=== PATIENT | female | born 1960 | race Caucasian/White ===

== ENCOUNTER 2024-02-02 15:21 | Outpatient (REF) | payer BC, SELFPAY ==
[2024-02-02 16:24] LABS: Basophils Percent Auto 1.3 % (0.0-3.0); Eosinophils Percent Auto 3.6 % (0.0-7.0); Hematocrit 38.6 % (33.0-51.0); Hemoglobin* 12.3 gm/dL (12.0-16.0); Lymphocytes Percent Auto 40.9 % (20-44); Mean Corpuscular HGB Conc 32 gm/dL (32-36); Mean Corpuscular Hemoglobin 28 pg (26-34); Mean Corpuscular Volume 89 fL (80-100); Monocytes Percent Auto 8.9 % (0.0-11.0); Neutrophils Percent Auto 45.3 % (42.0-72.0); Platelet Count* 364 K/uL (140-440); Red Blood Count 4.36 m/uL (4.00-5.20); White Blood Count* 3.03 K/uL (4.50-11.00)
[2024-02-02 16:25] LABS: Slide Review Reflex No
[2024-02-02 16:39] LABS: Chloride* 107 mmol/L (96-114); Sodium* 140 mmol/L (135-149)
[2024-02-02 16:40] LABS: Potassium* 4.3 mmol/L (3.6-5.1)
[2024-02-02 16:42] LABS: Creatinine* 1.4 mg/dL (0.5-1.5); Estimated Glomerular Filt Rate 43 ml/min
[2024-02-02 16:43] LABS: Anion Gap 5 mEq/L (7-15); Blood Urea Nitrogen* 34 mg/dL (7-30); Calcium* 9.4 mg/dL (8.4-10.6); Carbon Dioxide* 28 mmol/L (20-32); Glucose* 90 mg/dL (60-115); Magnesium* 2.1 mg/dL (1.5-2.6)
== END 2024-02-02 15:22 | disposition home or self-care (01) ==
LOC: NPINS 15:21
PROVIDERS: Internal Medicine Cardiovascular Disease
DX: Z94.1 Heart transplant status (principal)
CPT/HCPCS: 80048; 83735; 85025

== ENCOUNTER 2024-04-26 14:08 | Outpatient (RCR) | payer BC, SELFPAY ==
[2024-04-26 14:38] LABS: Hematocrit 37.5 % (33.0-51.0); Hemoglobin* 12.1 gm/dL (12.0-16.0); Immature Granulocytes Abs Auto 0.00 K/uL (0.00-0.30); Immature Granulocytes Pct Auto 0.0 %; Mean Corpuscular HGB Conc 32 gm/dL (32-36); Mean Corpuscular Hemoglobin 28 pg (26-34); Mean Corpuscular Volume 87 fL (80-100); RDW Coefficient of Variation % 12.1 % (11.5-15.5); Red Blood Count 4.30 m/uL (4.00-5.20); White Blood Count* 3.40 K/uL (4.50-11.00)
[2024-04-26 14:42] LABS: Lymphocytes Absolute Auto 1.30 K/uL (0.90-2.90); Slide Review Reflex No
[2024-04-26 14:44] LABS: Chloride* 108 mmol/L (96-114)
[2024-04-26 14:45] LABS: Potassium* 4.5 mmol/L (3.6-5.1); Sodium* 140 mmol/L (135-149)
[2024-04-26 14:47] LABS: Creatinine* 1.5 mg/dL (0.5-1.5); Estimated Glomerular Filt Rate 39 ml/min
[2024-04-26 14:48] LABS: Anion Gap 3 mEq/L (7-15); Blood Urea Nitrogen* 33 mg/dL (7-30); Calcium* 9.5 mg/dL (8.4-10.6); Carbon Dioxide* 29 mmol/L (20-32); Glucose* 92 mg/dL (60-115); Magnesium* 2.0 mg/dL (1.5-2.6)
== END 2025-04-13 11:12 | disposition home or self-care (01) ==
LOC: NPINS 14:08
PROVIDERS: PCP Family Medicine; Visit Provider Internal Medicine Cardiovascular Disease
DX: Z94.1 Heart transplant status (principal)
CPT/HCPCS: 80048; 83735; 85025

== ENCOUNTER 2024-07-18 11:00 | Outpatient (RCR) | payer BC, SELFPAY | END 2024-10-18 14:58 | disposition home or self-care (01) | PROVIDERS: PCP Family Medicine; Visit Provider Orthopaedic Surgery | DX: M76.00 Gluteal tendinitis, unspecified hip (principal); M70.60 Trochanteric bursitis, unspecified hip; M16.7 Other unilateral secondary osteoarthritis of hip; M25.552 Pain in left hip; Z51.89 Encounter for other specified aftercare | CPT/HCPCS: 97110; 97140; 97161 ==

== ENCOUNTER 2024-09-14 14:26 | Outpatient (REF) | payer BC, SELFPAY ==
[2024-09-14 17:08] LABS: Basophils Percent Auto 0.6 % (0.0-3.0); Eosinophils Percent Auto 2.6 % (0.0-7.0); Hematocrit 38.1 % (33.0-51.0); Lymphocytes Percent Auto 46.6 % (20-44); Mean Corpuscular HGB Conc 32 gm/dL (32-36); Mean Corpuscular Hemoglobin 28 pg (26-34); Mean Corpuscular Volume 88 fL (80-100); Monocytes Percent Auto 9.3 % (0.0-11.0); Neutrophils Percent Auto 40.9 % (42.0-72.0); Platelet Count* 319 K/uL (140-440); RDW Coefficient of Variation % 12.9 % (11.5-15.5); Red Blood Count 4.31 m/uL (4.00-5.20); White Blood Count* 3.43 K/uL (4.50-11.00)
[2024-09-14 17:15] LABS: Slide Review Reflex No
[2024-09-14 17:34] LABS: Chloride* 106 mmol/L (96-114)
[2024-09-14 17:35] LABS: Potassium* 4.8 mmol/L (3.6-5.1); Sodium* 138 mmol/L (135-149)
[2024-09-14 17:37] LABS: Creatinine* 1.5 mg/dL (0.5-1.5); Estimated Glomerular Filt Rate 39 ml/min
[2024-09-14 17:38] LABS: Anion Gap 4 mEq/L (7-15); Blood Urea Nitrogen* 29 mg/dL (7-30); Calcium* 9.6 mg/dL (8.4-10.6); Carbon Dioxide* 28 mmol/L (20-32); Glucose* 90 mg/dL (60-115); Magnesium* 2.1 mg/dL (1.5-2.6)
== END 2024-09-14 14:27 | disposition home or self-care (01) ==
LOC: NPINS 14:26
PROVIDERS: PCP Family Medicine; Visit Provider Internal Medicine Cardiovascular Disease
DX: Z94.1 Heart transplant status (principal)
CPT/HCPCS: 80048; 83735; 85025

== ENCOUNTER 2024-10-13 09:46 | Outpatient (CLI) | payer BC, SELFPAY | END 2024-10-13 09:47 | disposition home or self-care (01) | PROVIDERS: PCP Family Medicine; Visit Provider Family Medicine | DX: E03.9 Hypothyroidism, unspecified (principal); N18.31 Chronic kidney disease, stage 3a; E83.42 Hypomagnesemia; M85.80 Other specified disorders of bone density and structure, unspecified site; Z13.6 Encounter for screening for cardiovascular disorders; Z13.1 Encounter for screening for diabetes mellitus; Z11.59 Encounter for screening for other viral diseases | CPT/HCPCS: 80053; 80061; 82306; 84443; 86803 ==

== ENCOUNTER 2024-12-14 07:39 | Outpatient (CLI) | payer BC, SELFPAY ==
[2024-12-14 13:21] LABS: Basophils Percent Auto 0.9 % (0.0-3.0); Eosinophils Percent Auto 4.8 % (0.0-7.0); Hematocrit 36.1 % (33.0-51.0); Hemoglobin* 11.7 gm/dL (12.0-16.0); Lymphocytes Percent Auto 36.7 % (20-44); Mean Corpuscular HGB Conc 32 gm/dL (32-36); Mean Corpuscular Hemoglobin 29 pg (26-34); Mean Corpuscular Volume 88 fL (80-100); Monocytes Percent Auto 9.7 % (0.0-11.0); Neutrophils Percent Auto 47.9 % (42.0-72.0); Platelet Count* 289 K/uL (140-440); RDW Coefficient of Variation % 12.7 % (11.5-15.5); Red Blood Count 4.09 m/uL (4.00-5.20)
[2024-12-14 13:25] LABS: Chloride* 101 mmol/L (96-114); Potassium* 5.2 mmol/L (3.6-5.1); Sodium* 135 mmol/L (135-149)
[2024-12-14 13:28] LABS: Anion Gap 7 mEq/L (7-15); Blood Urea Nitrogen* 34 mg/dL (7-30); Calcium* 9.6 mg/dL (8.4-10.6); Carbon Dioxide* 27 mmol/L (20-32); Creatinine* 1.3 mg/dL (0.5-1.5); Estimated Glomerular Filt Rate 46 ml/min; Glucose* 80 mg/dL (60-115)
[2024-12-14 13:38] LABS: Slide Review Reflex No
== END 2024-12-14 07:40 | disposition home or self-care (01) ==
LOC: NPINS 07:40
PROVIDERS: PCP Family Medicine; Visit Provider Internal Medicine Cardiovascular Disease
DX: Z94.1 Heart transplant status (principal)
CPT/HCPCS: 80048; 80195; 80197; 83735; 85025

== ENCOUNTER 2025-01-03 12:54 | Outpatient (CLI) | payer BC, SELFPAY ==
--- NOTE | 2025-01-03 13:00 | CRLHL7_ITS ---
For Patients: As a result of the Century Cures Act, medical imaging exams and procedure reports are released immediately into your electronic medical record. You may view this report before your referring provider. If you have questions, please contact your health care provider. XR DXA Bone Mineral Density (BMD) Reason for exam: Osteopenia. Current height (in): 66. Weight (lb): 138. Menopause age: 49. Ethnicity: White. 1. Have you had a previous hip or vertebral fracture? Yes. 2. Have you had any fractures during your adult life which did not result from significant trauma (e.g., auto accident)? Yes. 3. Did either of your parents have a hip fracture? No. 4. Do you smoke? No. 5. Have you ever taken Glucocorticoids? No. 6. Do you have rheumatoid arthritis? No. 7. Do you have secondary osteoporosis? No. 8. Do you drink 3 or more alcoholic drinks per day? No. 9. Are you being treated for osteoporosis? No. 10. Have you ever taken any of the following medications: Actonel, Evista, Fosamax, Miacalcin, Reclast, Boniva, Forteo, HRT (i.e., estrogen/hormone therapy), Protelos, Prolia, Vitamin D, Calcium, other ??? please specify. ANSWER: Yes, vitamin D and calcium. 11. Do you have any of the following medical conditions: Anorexia or bulimia, asthma or emphysema, end stage renal disease, hyperparathyroidism, any seizure disorders, cancer, inflammatory bowel diseases, hysterectomy, other ??? please specify. ANSWER: No. 12. What was your maximum height (inches)? 66. 13. Do you perform weight bearing exercise regularly? No. 14. Do you regularly consume dairy products? No. 15. Do you drink caffeinated beverages? Yes. 16. At what age did your period start? 12. 17. Are you premenopausal? No. 18. How many full-term pregnancies have you had? 1. 19. Have you ever missed your period for more than 6 months in a row (not including or menopause)? Yes. TECHNIQUE: Bone mineral density study was performed using the [employer]. FINDINGS: The results of the study expressed as bone mineral density (BMD) are as follows: Lumbar spine L1 to L3: BMD: 0.920 g/cm2. T-score: -0.9. Z-score: 0.7 Neck Right: BMD: 0.653 g/cm2. T-score: -1.8. Z-score: -0.3 Total Right: BMD: 0.823 g/cm2. T-score: -1.0. Z-score: 0.2 Radius Left 33%: BMD: 0.551 g/cm2. T-score: -2.4. Z-score: -0.8 IMPRESSION: Osteopenia. *Comparison exams done prior to 02/2020 were performed on different unit, [employer]. Pk Casey M.D. Diagnostic Radiologist [email or web address]/Dictated by: Pk Casey MD @ 01/03/2025 4:35:00 PM (Electronically Signed)
--- NOTE | 2025-01-03 13:40 | CRLHL7_ITS ---
For Patients: As a result of the Century Cures Act, medical imaging exams and procedure reports are released immediately into your electronic medical record. You may view this report before your referring provider. If you have questions, please contact your health care provider. COMPARISON: 08/06/23, 06/01/22, 05/06/21 TECHNIQUE: CC and MLO views were obtained. These mammographic images have been obtained using full-field digital technique. These mammographic images were interpreted with the benefit of computer aided detection and tomosynthesis. BREAST COMPOSITION: There are scattered areas of fibroglandular density. FINDINGS: No suspicious findings. ASSESSMENT: BI-RADS 1 Negative RECOMMENDATION: Annual screening mammogram. A lay language report of this examination will be provided to the patient. Dictated by: Pk Casey MD @ 01/04/2025 12:30:47 (Electronically Signed)
== END 2025-01-03 12:55 | disposition home or self-care (01) ==
LOC: RAD 12:56
PROVIDERS: PCP Family Medicine; Visit Provider Family Medicine
DX: Z12.31 Encounter for screening mammogram for malignant neoplasm of breast (principal); M85.80 Other specified disorders of bone density and structure, unspecified site
CPT/HCPCS: 77063; 77067; 77080

== ENCOUNTER 2025-03-19 13:13 | Outpatient (CLI) | payer BC, SELFPAY ==
--- NOTE | 2025-03-19 13:45 | MR_ITS ---
EXAM: MRI EXAMINATION OF THE RIGHT HIP CLINICAL INFORMATION: Female, 64 years old, with hip pain INDICATION: Evaluate for avascular necrosis or abductor tear PRIOR SURGERY: None reported. PLAIN FILMS: Radiographs 02/21/2025 COMPARISONS: No prior MRIs available. TECHNICAL INFORMATION: Using a 1.5T MR scanner and a localizing surface coil: coronals: PD, T2 sagittals: PD, T2 oblique axials: PD straight axials: T2FS coronals: T1, STIR of pelvis and hips SEDATION: None CONTRAST: None FINDINGS: Hip joint: Moderate size joint effusion. Grade 3 chondral thinning of the anterosuperior femoroacetabular articulation (sagittal series 8 image 23). Additional grade 2 thinning is seen at the superior periphery. No broad-based full-thickness chondral loss. No intra-articular bodies. Labrum: Blunting, degeneration, and fraying is noted along the anterosuperior labrum. No evidence of paralabral ganglion cyst. Proximal femur: There is crescentic region of low signal in the superior femoral head measuring approximately 3.2 x 4.4 cm (accompanying by moderate patchy marrow edema in the superior femoral head, as well. Mild patchy marrow edema does extend through the level of the femoral neck and intertrochanteric region. There is no evidence for subchondral collapse or flattening. Acetabulum: No subchondral cysts, periacetabular ossicles or marrow edema. Ligamentum teres: Degeneration of the ligamentum teres without full-thickness disruption. Pelvis osseous structures: Sacral ala and sacroiliac joints: No stress/insufficiency fractures or marrow edema/pathology. No demonstrable sacroiliitis. Pubic rami and pubic symphysis: No stress/insufficiency fractures or marrow edema/pathology. Normal alignment without hypertrophy or evidence of ongoing osteitis pubis. Myotendinous structures: Gluteus abductors: Mild peritendinous soft tissue edema and cystic associated with the anterior gluteus medius. Adductors: No demonstrable tendinopathy or strain/tear. Hamstrings: Intact semimembranosus, semitendinosus and biceps femoris tendons, without tendinopathy or tear. Flexors: Intact iliopsoas and rectus femoris, without strain/tear. External rotators: Intact, without demonstrable ischiofemoral impingement. Gluteal aponeurotic fascia and IT band: Unremarkable. Bursae: No demonstrable trochanteric, iliopsoas, or iliopectineal bursitis. Intrapelvic contents: Free fluid: Trace intrapelvic free fluid Pelvic viscera: No discrete intrapelvic mass is identified. Lymph nodes: No lymphadenopathy by MRI size criteria. Neurovascular structures: No discrete cyst, mass or other compression upon the portions visualized of sciatic or femoral nerves. Lumbar spine: The visualized portions of the lower lumbar spine are unremarkable. Other: There is postoperative change or polyp arthroplasty with associated susceptibility artifact. No evidence for marrow signal abnormality suggest osteolysis or loosening. Trace joint effusion. IMPRESSION: 1. 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 No evidence for subchondral bone plate flattening. 2. Chondral thinning involving the anterosuperior joint articular cartilage, as well as mild chondral thinning at the superior periphery. No broad-based full- thickness chondral loss. Moderate-sized joint effusion. Blunting, degeneration, fraying of the anterosuperior labrum. 3. Mild gluteus medius tendinopathy, without tear. Remaining myotendinous structures about the hip are intact. KME Electronically signed on 03/20/2025 10:33:00 AM by Libia Elizabeth M.D.
== END 2025-03-19 13:14 | disposition home or self-care (01) ==
LOC: MRI 13:15
PROVIDERS: PCP Family Medicine; Visit Provider Orthopaedic Surgery Sports Medicine
DX: M25.551 Pain in right hip (principal); M25.451 Effusion, right hip; M87.051 Idiopathic aseptic necrosis of right femur; R29.898 Other symptoms and signs involving the musculoskeletal system
CPT/HCPCS: 73721

== ENCOUNTER 2025-03-22 07:25 | Outpatient (CLI) | payer BC, SELFPAY ==
[2025-03-22 13:19] LABS: Hematocrit 38.7 % (33.0-51.0); Hemoglobin* 12.4 gm/dL (12.0-16.0); Immature Granulocytes Abs Auto 0.00 K/uL (0.00-0.30); Immature Granulocytes Pct Auto 0.0 %; Mean Corpuscular HGB Conc 32 gm/dL (32-36); Mean Corpuscular Hemoglobin 29 pg (26-34); Mean Corpuscular Volume 89 fL (80-100); RDW Coefficient of Variation % 12.6 % (11.5-15.5); Red Blood Count 4.33 m/uL (4.00-5.20); White Blood Count* 4.39 K/uL (4.50-11.00)
[2025-03-22 13:37] LABS: Chloride* 106 mmol/L (96-114); Sodium* 139 mmol/L (135-149)
[2025-03-22 13:38] LABS: Potassium* 4.3 mmol/L (3.6-5.1)
[2025-03-22 13:40] LABS: Anion Gap 5 mEq/L (7-15); Blood Urea Nitrogen* 31 mg/dL (7-30); Calcium* 9.8 mg/dL (8.4-10.6); Carbon Dioxide* 28 mmol/L (20-32); Creatinine* 1.4 mg/dL (0.5-1.5); Estimated Glomerular Filt Rate 42 ml/min; Glucose* 92 mg/dL (60-115)
[2025-03-22 13:42] LABS: Lymphocytes Absolute Auto 1.50 K/uL (0.90-2.90); Slide Review Reflex No
== END 2025-03-22 07:26 | disposition home or self-care (01) ==
LOC: NPINS 07:26
PROVIDERS: PCP Family Medicine; Visit Provider Internal Medicine Cardiovascular Disease
DX: Z94.1 Heart transplant status (principal)
CPT/HCPCS: 80048; 83735; 85025